=== PATIENT | male | born 1995 | race Caucasian/White ===

== ENCOUNTER 2018-02-11 18:23 | Emergency (ER) | payer SELFPAY ==
[~2018-02-11] VITALS: Ht 180.3 cm; Wt 68.2 kg
[2018-02-11 18:32] VITALS: Ht 180.3 cm; Wt 68.2 kg
[2018-02-11] MEDS ORDERED: MEDROL DOSE PACK4 MG PO (19:41)
[2018-02-11 20:10] VITALS: BP 128/75
== END 2018-02-11 20:11 | disposition home or self-care (01) ==
LOC: D.ER 18:23
DX: L25.9 Unspecified contact dermatitis, unspecified cause (principal); F17.200 Nicotine dependence, unspecified, uncomplicated

== ENCOUNTER 2020-03-16 07:58 | Emergency (ER) | payer OTHER ==
[~2020-03-16] VITALS: Ht 180.3 cm; Wt 63.6 kg
[~2020-03-16 07:58] MED LIST: MEDROL DOSE PACK4 MG PO
[2020-03-16 08:07] VITALS: Ht 180.3 cm; Wt 63.6 kg
[2020-03-16] MEDS ORDERED: NAPROSYN500 MG PO (09:35)
[2020-03-16 09:54] VITALS: BP 128/74
== END 2020-03-16 09:54 | disposition home or self-care (01) ==
LOC: D.ER 07:58
DX: T14.8XXA Other injury of unspecified body region, initial encounter (principal); V29.3XXA Motorcycle rider (driver) (passenger) injured in unspecified nontraffic accident, initial encounter; Y93.9 Activity, unspecified; Y92.9 Unspecified place or not applicable; M25.552 Pain in left hip; M25.512 Pain in left shoulder; M25.572 Pain in left ankle and joints of left foot